=== PATIENT | female | born 1990 | race Caucasian/White ===

== ENCOUNTER 2016-10-28 09:35 | Emergency (ER) | payer MEDICAID ==
[~2016-10-28] VITALS: Ht 157.5 cm; Wt 72.5 kg
[2016-10-28 09:44] VITALS: Ht 157.5 cm; Wt 72.5 kg
[2016-10-28] MEDS ORDERED: AMO500 PO (10:23)
[2016-10-28] MEDS ORDERED: IBUP-1542 PO (10:23)
--- NOTE | 2016-10-28 10:26 | ERD ---
ER Documentation Chief Complaint Date/Time DATE: 10/28/16 TIME: 10:[address], [place], body pain, fever X 3 days. No fever or cough today. HPI This 26-year-old female presents with a 3 day history of subjective fevers, sore throat. She denies cough, vomiting, neck stiffness, rashes. ROS All systems reviewed and are negative except as per history of present illness. Medications Home Meds Active Scripts Ibuprofen* (Motrin*) 600 Mg Tab, 600 MG PO Q6, #15 TAB Prov:TWILA JOHNSON MD 10/28/16 Amoxicillin* (Amoxicillin*) 500 Mg Cap, 500 MG PO TID for 10 Days, CAP Prov:TWILA JOHNSON MD 10/28/16 Allergies Allergies: Coded Allergies: No Known Drug Allergy (Verified Allergy, Unknown, 10/29/13) PMhx/Soc History of Surgery: No (CAESARIAN SURGERY) Anesthesia Reaction: No Hx Neurological Disorder: No Hx Respiratory Disorders: No Hx Cardiac Disorders: No Hx Psychiatric Problems: No Hx Miscellaneous Medical Probl: No Hx Alcohol Use: No Hx Substance Use: No Hx Tobacco Use: No Physical Exam Vitals Vital Signs Date Time Temp Pulse Resp B/P Pulse Ox O2 Delivery O2 Flow Rate FiO2 10/28/16 09:44 97.9 54 16 117/75 96 Physical Exam Const: [] Alert, [id number] Head: Atraumatic Eyes: Normal Conjunctiva ENT: Normal External Ears, Nose and Mouth. TMs normal. Tonsils 3+ with erythema and slight exudate. Airway patent. Uvula midline. Slight tender anterior cervical lymphadenitis Neck: Full range of motion..~ No meningismus. Resp: Clear to auscultation bilaterally Cardio: Regular rate and rhythm, no murmurs Abd: Soft, non tender, non distended. Normal bowel sounds Skin: No petechiae or rashes Back: No midline or flank tenderness Ext: No cyanosis, or edema Neur: Awake and alert Psych: Normal Mood and Affect Procedures/MDM Presents presents with signs of pharyngitis without evidence of abscess, airway obstruction, sepsis, additional emergent, additional concerning signs for emergent conditions related to the presenting complaints. She will be treated with amoxicillin and ibuprofen. The patient was stable with no new complaints during the ER course. Clinically, there is no current evidence to suggest meningitis, sepsis, acute abdomen, pneumonia, acute coronary syndrome, pulmonary embolism, or any other emergent condition appearing to require further evaluation or hospitalization. The patient should certainly return for any new or worsening symptoms per the aftercare instructions. They should otherwise follow-up with her primary care doctor for reevaluation this week. Departure Diagnosis: Primary Impression: Pharyngitis Pharyngitis/tonsillitis etiology: unspecified etiology Qualified Code: J02.9 - Pharyngitis, unspecified etiology Condition: Stable Patient Instructions: Pharyngitis, Strep (Presumed) Additional Instructions: Cheque otro vez con galo doctor primario en el proximo wise or regresa para mas o nueva simptomas. TWILA JOHNSON MD Oct 28, 2016 10:26
== END 2016-10-28 10:36 | disposition home or self-care (01) ==
LOC: FTE 09:35
DX: J02.9 Acute pharyngitis, unspecified (principal)
CPT/HCPCS: 99283